=== PATIENT | female | born 1955 | race Asian ===

== ENCOUNTER 2025-03-15 07:39 | Emergency (ER) | payer BC, SELFPAY ==
[2025-03-15] MEDS ORDERED: Ondansetron PF 4 MG/2 ML Vial ONE (08:08)
[2025-03-15 08:41] LABS: #Basophils 0.04 10x3/uL (0.0-0.2); #Eosinophils 0.17 10x3/uL (0.0-0.5); #Monocytes 0.42 10x3/uL (0.0-1.1); #Neutrophils 7.20 10x3/uL (1.5-8.4); %Basophils 0.4 % (0.0-2.0); %Eosinophils 1.6 % (0.0-6.0); %Lymphocytes 26.5 % (18.0-47.0); %Monocytes 3.9 % (0.0-10.0); %Neutrophils 67.3 % (40.0-75.0); Hematocrit 38.9 % (34.9-44.5); Hemoglobin 12.7 g/dL (12.0-15.5); Mean Corpuscular Hemoglobin 27.6 pg (27.0-33.0); Mean Corpuscular Volume 84.6 fL (81.6-98.3); Platelet Count 322 10x3/uL (150-450); Red Blood Cell (RBC) Count 4.60 10x6/uL (3.90-5.03); White Blood Cell (WBC) Count 10.70 10x3/uL (3.5-10.5)
[2025-03-15 09:17] LABS: ALT (SGPT) 23 U/L (Less than 34); AST (SGOT) 25 U/L (11-34); Albumin 4.1 g/dL (3.1-4.5); Alkaline Phosphatase 107 U/L (40-110); Anion Gap 15 mmol/L (10-20); BUN (Urea Nitrogen) 23 mg/dL (9.8-20.1); Bilirubin, Total 0.3 mg/dL (0.3-1.2); Calc. Creatinine Clearance 0 mL/min (70-130); Calcium 9.2 mg/dL (7.8-10.44); Carbon Dioxide 21 mmol/L (23-31); Chloride 110 mmol/L (98-107); Globulin 3.6 g/dL (2.4-3.5); Glucose 122 mg/dL (80-115); Magnesium 2.1 mg/dL (1.6-2.6); Potassium 3.8 mmol/L (3.5-5.1); Sodium 142 mmol/L (136-145)
== END 2025-03-15 10:22 | disposition home or self-care (01) ==
LOC: CSHERS 07:39
DX: R42 Dizziness and giddiness (principal); R29.700 NIHSS score 0
CPT/HCPCS: 70450; 80053; 83735; 84439; 84443; 85025; 93005; J2405; J3360

== ENCOUNTER 2025-03-15 13:19 | Emergency (ER) | payer BC ==
[2025-03-15] MEDS ORDERED: Metoclopramide HCl 10 MG (2 mL) VIAL ONE (14:18)
[2025-03-15] MEDS ORDERED: diphenhydrAMINE 50 MG/ML VIAL ONE (14:18)
== END 2025-03-15 15:59 | disposition home or self-care (01) ==
LOC: CSHERS 13:19
DX: R42 Dizziness and giddiness (principal); R29.700 NIHSS score 0
CPT/HCPCS: 70450; 80053; 83735; 84439; 84443; 85025; 93005; 96361; 96374; 96375; J1200; J2405; J2765; J3360